=== PATIENT | male | born 1990 | race Caucasian/White ===

== ENCOUNTER 2016-08-19 19:10 | Inpatient (IN) | payer MEDICAID ==
[~2016-08-19] VITALS: Ht 165.1 cm; Wt 104.5 kg
[2016-08-19] MEDS ORDERED: SODIUM CHLORIDE 0.9% 1,000ML IVBOLUS ONE (19:30)
[2016-08-19] MEDS ORDERED: CLINDAMYCIN PMX 900MG/50ML 50 ML ONE (19:49)
[2016-08-19] MEDS ORDERED: CLINDAMYCIN PMX 900MG/50ML 50 ML IV ONE ×2 (19:50→20:00)
[2016-08-19] MEDS ORDERED: VANCOMYCIN PER PHARMACY MC PRN (20:00)
[2016-08-19] MEDS ORDERED: VANCOMYCIN 2,000 MG in SODIUM CHLORIDE 0.9% 500 ML IV ONE (20:00)
[2016-08-19] MEDS ORDERED: PIPERACILLIN/TAZO/PMX 3.375GM 50 ML IV ONE (20:00)
[2016-08-19 20:04] LABS: ASPARTATE AMINO TRANSFERASE 31 U/L (15-37); BLOOD UREA NITROGEN 15 mg/dL (7-18)
[2016-08-19] MEDS: HEPARIN 5,000 UNITS/ML, 1ML SQ SCH (21:00)
[2016-08-19] MEDS ORDERED: SODIUM CHLORIDE FLUSH 10ML SYR IVF PRN (21:00)
[2016-08-19] MEDS ORDERED: ACETAMINOPHEN 325 MG TABLET PO PRN (21:00)
[2016-08-19] MEDS ORDERED: POLYETHYLENE GLYCOL 17 GM PACKET PO PRN (21:00)
[2016-08-19] MEDS ORDERED: ONDANSETRON 2MG/ML, 2ML IVP PRN (21:00)
[2016-08-19] MEDS ORDERED: BISACODYL 10 MG SUPP PR PRN (21:00)
[2016-08-19 21:44] LABS: HIV 1&2 ANTIBODY SCREEN Nonreactive (Nonreactive); HIV-1 p24 ANTIGEN Nonreactive (Nonreactive)
[2016-08-19] MEDS: SODIUM CHLORIDE 0.9% 1,000 ML IV SCH (22:43)
[2016-08-19 23:05] VITALS: BP 103/67
[2016-08-19] MEDS: OXYcodone IR 5MG TABLET PO PRN (23:06)
[2016-08-20] MEDS: MEROPENEM 1 GM in SODIUM CHLORIDE 0.9% 100 ML IV SCH ×3 (00:41→17:44)
[2016-08-20] MEDS: LINEZOLID PMX 600MG/300ML 300 ML IV SCH ×2 (01:54→14:22)
[2016-08-20 02:00] VITALS: BP 109/69
[2016-08-20] MEDS: HEPARIN 5,000 UNITS/ML, 1ML SQ SCH ×3 (04:32→20:43)
[2016-08-20 06:04] LABS: ASPARTATE AMINO TRANSFERASE 44 U/L (15-37); BLOOD UREA NITROGEN 11 mg/dL (7-18)
[2016-08-20] MEDS ORDERED: GADOBUTROL 10 MMOL/10 ML PFS ONE (07:30)
[2016-08-20] MEDS: OXYcodone IR 5MG TABLET PO PRN ×2 (07:56→20:31)
[2016-08-20 08:55] VITALS: BP 126/78
[2016-08-20] MEDS: NICOTINE 7 MG/24 HR PATCH.TD24 TD SCH (09:00)
[2016-08-20] MEDS: SODIUM CHLORIDE 0.9% 1,000 ML IV SCH (09:00)
[2016-08-20] MEDS: SENNA/DOCUSATE TABLET PO SCH (09:28)
[2016-08-20 09:47] LABS: HEPATITIS C VIRUS ANTIBODY Nonreactive (Nonreactive)
[2016-08-20 15:00] VITALS: BP 117/82
[2016-08-20 19:52] VITALS: BP 93/57
[2016-08-21] MEDS: MEROPENEM 1 GM in SODIUM CHLORIDE 0.9% 100 ML IV SCH ×3 (00:26→18:40)
[2016-08-21] MEDS: OXYcodone IR 5MG TABLET PO PRN ×3 (00:26→23:46)
[2016-08-21] MEDS: LINEZOLID PMX 600MG/300ML 300 ML IV SCH ×2 (02:00→14:20)
[2016-08-21 03:04] VITALS: BP 97/61
[2016-08-21] MEDS: HEPARIN 5,000 UNITS/ML, 1ML SQ SCH ×3 (05:00→21:00)
[2016-08-21 06:34] LABS: BLOOD UREA NITROGEN 10 mg/dL (7-18)
[2016-08-21 07:03] VITALS: BP 97/59
[2016-08-21] MEDS: NICOTINE 7 MG/24 HR PATCH.TD24 TD SCH (08:45)
[2016-08-21] MEDS: SENNA/DOCUSATE TABLET PO SCH (08:45)
[2016-08-21 15:06] VITALS: BP 110/69
[2016-08-21] MEDS ORDERED: NEOSPORIN OINT, 15GM ONE (16:09)
[2016-08-21] MEDS ORDERED: ROCURONIUM 10 MG/ML ONE (16:14)
[2016-08-21] MEDS ORDERED: CEFAZOLIN 1,000 MG ONE (16:14)
[2016-08-21] MEDS ORDERED: ONDANSETRON 2MG/ML, 2ML ONE (16:14)
[2016-08-21] MEDS ORDERED: PROPOFOL 10 MG/ML, 20ML ONE (16:14)
[2016-08-21] MEDS ORDERED: SUCCINYLCHOLINE 20 MG/ML, 10ML ONE (16:14)
[2016-08-21] MEDS ORDERED: FENTANYL PF 250 MCG/5ML ONE (16:19)
[2016-08-21] MEDS ORDERED: MIDAZOLAM 1 MG/ML, 2ML ONE (16:19)
[2016-08-21] MEDS ORDERED: HYDROmorphone 1 MG/ML, 1ML IV PRN (17:00)
[2016-08-21] MEDS ORDERED: ONDANSETRON 2MG/ML, 2ML IVPush PRN (17:00)
[2016-08-21] MEDS ORDERED: OXYcodone 5 MG/5 ML ORAL.SOL UDC PO PRN (17:00)
[2016-08-21] MEDS ORDERED: LABETALOL 5MG/ML, 20ML IV PRN (17:00)
[2016-08-21] MEDS ORDERED: ACETAMINOPHEN 325 MG TABLET PO PRN (17:00)
[2016-08-21] MEDS ORDERED: FENTANYL PF 100 MCG/2ML IV PRN (17:00)
[2016-08-21] MEDS ORDERED: hydrALAzine 20 MG/ML, 1ML IV PRN (17:00)
[2016-08-21] MEDS ORDERED: METOCLOPRAMIDE 5 MG/ML, 2ML IV PRN (17:00)
[2016-08-21] MEDS ORDERED: BUPIVACAINE/PF-EPI 0.25% 1:200K ONE (17:12)
[2016-08-21] MEDS ORDERED: OXYcodone 5 MG/5 ML ORAL.SOL UDC ONE (17:53)
[2016-08-21] MEDS: MORPHINE SULFATE 4 MG/ML, 1ML IVPush PRN (18:56)
[2016-08-21 19:57] VITALS: BP 120/66
[2016-08-22] MEDS: MEROPENEM 1 GM in SODIUM CHLORIDE 0.9% 100 ML IV SCH ×3 (00:59→16:35)
[2016-08-22 01:55] VITALS: BP 109/57
[2016-08-22] MEDS: LINEZOLID PMX 600MG/300ML 300 ML IV SCH ×2 (01:56→13:10)
[2016-08-22] MEDS: HEPARIN 5,000 UNITS/ML, 1ML SQ SCH ×3 (04:48→20:33)
[2016-08-22 07:55] VITALS: BP 122/57
[2016-08-22] MEDS: OXYcodone IR 5MG TABLET PO PRN ×2 (08:55→16:38)
[2016-08-22] MEDS: SENNA/DOCUSATE TABLET PO SCH (08:56)
[2016-08-22] MEDS: NICOTINE 7 MG/24 HR PATCH.TD24 TD SCH (08:57)
[2016-08-22 13:57] VITALS: BP 111/58
[2016-08-22 19:55] VITALS: BP 116/78
[2016-08-23] MEDS: MEROPENEM 1 GM in SODIUM CHLORIDE 0.9% 100 ML IV SCH ×3 (00:57→17:28)
[2016-08-23 01:40] VITALS: BP 121/75
[2016-08-23] MEDS: LINEZOLID PMX 600MG/300ML 300 ML IV SCH ×2 (01:45→14:48)
[2016-08-23] MEDS: HEPARIN 5,000 UNITS/ML, 1ML SQ SCH ×3 (04:05→22:28)
[2016-08-23 08:30] VITALS: BP 116/73
[2016-08-23] MEDS: SENNA/DOCUSATE TABLET PO SCH (08:30)
[2016-08-23] MEDS: NICOTINE 7 MG/24 HR PATCH.TD24 TD SCH (08:30)
[2016-08-23] MEDS: OXYcodone IR 5MG TABLET PO PRN (08:55)
[2016-08-23] MEDS: MORPHINE SULFATE 4 MG/ML, 1ML IVPush PRN (10:21)
[2016-08-23 14:30] VITALS: BP 129/77
[2016-08-23 19:42] VITALS: BP 117/69
[2016-08-24] MEDS: MEROPENEM 1 GM in SODIUM CHLORIDE 0.9% 100 ML IV SCH ×2 (01:26→11:21)
[2016-08-24 01:38] VITALS: BP 122/76
[2016-08-24] MEDS: LINEZOLID PMX 600MG/300ML 300 ML IV SCH ×2 (02:35→14:03)
[2016-08-24] MEDS: HEPARIN 5,000 UNITS/ML, 1ML SQ SCH ×3 (06:30→23:05)
[2016-08-24] MEDS: SENNA/DOCUSATE TABLET PO SCH (07:47)
[2016-08-24] MEDS: NICOTINE 7 MG/24 HR PATCH.TD24 TD SCH (07:47)
[2016-08-24] MEDS: OXYcodone IR 5MG TABLET PO PRN (09:49)
[2016-08-24 09:54] VITALS: BP 129/80
[2016-08-24] MEDS ORDERED: CEFAZOLIN PMX 2GM/100ML 100 ML IV SCH (14:30)
[2016-08-24] MEDS ORDERED: CEFAZOLIN PMX 2GM/50ML 50 ML IV SCH (14:30)
[2016-08-24 15:09] VITALS: BP 140/93
[2016-08-24 20:36] VITALS: BP 135/85
[2016-08-24] MEDS: CEFAZOLIN PMX 2GM/50ML 50 ML IV SCH (23:05)
[2016-08-25 03:08] VITALS: BP 139/80
[2016-08-25] MEDS: CEFAZOLIN PMX 2GM/50ML 50 ML IV SCH ×3 (06:15→22:21)
[2016-08-25] MEDS: HEPARIN 5,000 UNITS/ML, 1ML SQ SCH ×3 (06:16→22:21)
[2016-08-25 07:36] VITALS: BP 120/74
[2016-08-25] MEDS: SENNA/DOCUSATE TABLET PO SCH (07:40)
[2016-08-25] MEDS: NICOTINE 7 MG/24 HR PATCH.TD24 TD SCH (07:40)
[2016-08-25] MEDS: OXYcodone IR 5MG TABLET PO PRN (07:44)
[2016-08-25 13:39] VITALS: BP 114/68
[2016-08-25 19:50] VITALS: BP 121/78
[2016-08-26 01:27] VITALS: BP 117/75
[2016-08-26] MEDS: HEPARIN 5,000 UNITS/ML, 1ML SQ SCH ×3 (06:30→22:30)
[2016-08-26] MEDS: CEFAZOLIN PMX 2GM/50ML 50 ML IV SCH ×3 (06:38→22:40)
[2016-08-26 07:48] VITALS: BP 127/64
[2016-08-26] MEDS: SENNA/DOCUSATE TABLET PO SCH (09:00)
[2016-08-26] MEDS: NICOTINE 7 MG/24 HR PATCH.TD24 TD SCH (09:00)
[2016-08-26] MEDS: MORPHINE SULFATE 4 MG/ML, 1ML IVPush PRN (12:07)
[2016-08-26 13:05] VITALS: BP 139/75
[2016-08-26] MEDS: OXYcodone IR 5MG TABLET PO PRN (13:57)
[2016-08-26 18:49] VITALS: BP 112/71
[2016-08-27 02:40] VITALS: BP 100/63
[2016-08-27 06:37] LABS: ASPARTATE AMINO TRANSFERASE 35 U/L (15-37); BLOOD UREA NITROGEN 13 mg/dL (7-18); C-REACTIVE PROTEIN, QUANT 0.42 mg/dL (0.02-0.49)
[2016-08-27 07:10] VITALS: BP 128/86
[2016-08-27] MEDS: SENNA/DOCUSATE TABLET PO SCH (08:05)
[2016-08-27] MEDS: HEPARIN 5,000 UNITS/ML, 1ML SQ SCH ×3 (08:05→22:30)
[2016-08-27] MEDS: CEFAZOLIN PMX 2GM/50ML 50 ML IV SCH ×3 (08:05→23:16)
[2016-08-27] MEDS: NICOTINE 7 MG/24 HR PATCH.TD24 TD SCH (08:06)
[2016-08-27] MEDS: OXYcodone IR 5MG TABLET PO PRN ×2 (08:07→12:40)
[2016-08-27] MEDS ORDERED: PROPOFOL 10 MG/ML, 20ML ONE (09:38)
[2016-08-27] MEDS ORDERED: GLYCOPYRROLATE 0.2MG/1ML ONE (09:38)
[2016-08-27] MEDS ORDERED: SUCCINYLCHOLINE 20 MG/ML, 10ML ONE (09:38)
[2016-08-27] MEDS ORDERED: NEOSTIGMINE 1 MG/ML, 10ML ONE (09:38)
[2016-08-27] MEDS ORDERED: ROCURONIUM 10 MG/ML ONE (09:38)
[2016-08-27] MEDS ORDERED: ONDANSETRON 2MG/ML, 2ML ONE (09:38)
[2016-08-27 13:00] VITALS: BP 116/73
[2016-08-27 18:38] VITALS: BP 141/88
[2016-08-28 02:28] VITALS: BP 98/54
[2016-08-28] MEDS: CEFAZOLIN PMX 2GM/50ML 50 ML IV SCH ×3 (06:15→22:55)
[2016-08-28] MEDS: HEPARIN 5,000 UNITS/ML, 1ML SQ SCH ×3 (06:15→22:30)
[2016-08-28] MEDS: SENNA/DOCUSATE TABLET PO SCH (09:00)
[2016-08-28] MEDS: NICOTINE 7 MG/24 HR PATCH.TD24 TD SCH (09:00)
[2016-08-28 09:02] VITALS: BP 113/55
[2016-08-28] MEDS ORDERED: FENTANYL PF 250 MCG/5ML ONE (09:41)
[2016-08-28] MEDS ORDERED: MIDAZOLAM 1 MG/ML, 2ML ONE (09:42)
[2016-08-28] MEDS ORDERED: LABETALOL 5MG/ML, 20ML IV PRN (10:00)
[2016-08-28] MEDS ORDERED: METOCLOPRAMIDE 5 MG/ML, 2ML IV PRN (10:00)
[2016-08-28] MEDS ORDERED: ONDANSETRON 2MG/ML, 2ML IVPush PRN (10:00)
[2016-08-28] MEDS ORDERED: ACETAMINOPHEN 325 MG TABLET PO PRN (10:00)
[2016-08-28] MEDS ORDERED: hydrALAzine 20 MG/ML, 1ML IV PRN (10:00)
[2016-08-28] MEDS ORDERED: HYDROmorphone 1 MG/ML, 1ML IV PRN (10:00)
[2016-08-28] MEDS ORDERED: OXYcodone 5 MG/5 ML ORAL.SOL UDC PO PRN (10:00)
[2016-08-28] MEDS: FENTANYL PF 100 MCG/2ML IV PRN ×2 (10:45→11:12)
[2016-08-28] MEDS ORDERED: FENTANYL PF 100 MCG/2ML ONE (10:50)
[2016-08-28] MEDS ORDERED: ACETAMINOPHEN 325 MG TABLET ONE (10:51)
[2016-08-28] MEDS ORDERED: OXYcodone 5 MG/5 ML ORAL.SOL UDC ONE (10:51)
[2016-08-28] MEDS ORDERED: HYDROmorphone 2 MG/ML, 1ML ONE (11:19)
[2016-08-28 13:59] VITALS: BP 152/72
[2016-08-28] MEDS: OXYcodone IR 5MG TABLET PO PRN (14:22)
[2016-08-28 19:34] VITALS: BP 112/51
[2016-08-29 03:00] VITALS: BP 95/47
[2016-08-29] MEDS: CEFAZOLIN PMX 2GM/50ML 50 ML IV SCH ×3 (06:21→23:14)
[2016-08-29] MEDS: HEPARIN 5,000 UNITS/ML, 1ML SQ SCH ×3 (06:24→22:30)
[2016-08-29 07:27] VITALS: BP 120/65
[2016-08-29] MEDS: SENNA/DOCUSATE TABLET PO SCH (09:00)
[2016-08-29] MEDS: OXYcodone IR 5MG TABLET PO PRN ×2 (09:21→20:02)
[2016-08-29] MEDS: NICOTINE 7 MG/24 HR PATCH.TD24 TD SCH (09:22)
[2016-08-29] MEDS: ERTAPENEM 1 GM in SODIUM CHLORIDE 0.9% 50 ML IV SCH (15:03)
[2016-08-29 15:11] VITALS: BP 122/75
[2016-08-29 19:56] VITALS: BP 147/77
[2016-08-30] MEDS: CEFAZOLIN PMX 2GM/50ML 50 ML IV SCH ×2 (06:24→14:30)
[2016-08-30] MEDS: HEPARIN 5,000 UNITS/ML, 1ML SQ SCH ×3 (06:24→22:06)
[2016-08-30 07:27] VITALS: BP 123/66
[2016-08-30] MEDS: NICOTINE 7 MG/24 HR PATCH.TD24 TD SCH (09:00)
[2016-08-30] MEDS: SENNA/DOCUSATE TABLET PO SCH (09:00)
[2016-08-30 13:44] VITALS: BP 126/71
[2016-08-30] MEDS: ERTAPENEM 1 GM in SODIUM CHLORIDE 0.9% 50 ML IV SCH (14:30)
[2016-08-30 19:01] VITALS: BP 135/72
[2016-08-30] MEDS: OXYcodone IR 5MG TABLET PO PRN (19:40)
[2016-08-31] MEDS: OXYcodone IR 5MG TABLET PO PRN ×2 (00:09→19:07)
[2016-08-31 01:30] VITALS: BP 130/72
[2016-08-31] MEDS: HEPARIN 5,000 UNITS/ML, 1ML SQ SCH ×2 (06:30→15:41)
[2016-08-31 08:35] VITALS: BP 127/68
[2016-08-31] MEDS: SENNA/DOCUSATE TABLET PO SCH (09:00)
[2016-08-31] MEDS: NICOTINE 7 MG/24 HR PATCH.TD24 TD SCH (09:00)
[2016-08-31] MEDS: ERTAPENEM 1 GM in SODIUM CHLORIDE 0.9% 50 ML IV SCH (15:40)
[2016-08-31] MEDS: MORPHINE SULFATE 4 MG/ML, 1ML IVPush PRN ×2 (15:46→20:06)
[2016-08-31 16:10] VITALS: BP 144/78
[2016-08-31 20:01] VITALS: BP 138/69
[2016-09-01 02:04] VITALS: BP 125/84
[2016-09-01] MEDS: HEPARIN 5,000 UNITS/ML, 1ML SQ SCH ×4 (08:00→23:55)
[2016-09-01] MEDS: SENNA/DOCUSATE TABLET PO SCH (08:46)
[2016-09-01] MEDS: NICOTINE 7 MG/24 HR PATCH.TD24 TD SCH (08:46)
[2016-09-01 09:03] VITALS: BP 122/70
[2016-09-01] MEDS: MORPHINE SULFATE 4 MG/ML, 1ML IVPush PRN ×3 (09:54→23:49)
[2016-09-01] MEDS: OXYcodone IR 5MG TABLET PO PRN (13:06)
[2016-09-01 14:16] VITALS: BP 153/82
[2016-09-01] MEDS: ERTAPENEM 1 GM in SODIUM CHLORIDE 0.9% 50 ML IV SCH (14:58)
[2016-09-01 19:21] VITALS: BP 135/75
[2016-09-02 01:45] VITALS: BP 130/78
[2016-09-02] MEDS ORDERED: DIPHENHYDRAMINE 25 MG CAPSULE PO ONE (03:00)
[2016-09-02 06:08] LABS: ASPARTATE AMINO TRANSFERASE 112 U/L (15-37); BLOOD UREA NITROGEN 15 mg/dL (7-18); C-REACTIVE PROTEIN, QUANT 0.37 mg/dL (0.02-0.49)
[2016-09-02 08:00] VITALS: BP 123/70
[2016-09-02] MEDS: HEPARIN 5,000 UNITS/ML, 1ML SQ SCH ×3 (08:00→16:46)
[2016-09-02] MEDS: NICOTINE 7 MG/24 HR PATCH.TD24 TD SCH (08:18)
[2016-09-02] MEDS: SENNA/DOCUSATE TABLET PO SCH (08:18)
[2016-09-02] MEDS: OXYcodone IR 5MG TABLET PO PRN ×2 (08:19→16:45)
[2016-09-02 13:53] VITALS: BP 132/74
[2016-09-02] MEDS: ERTAPENEM 1 GM in SODIUM CHLORIDE 0.9% 50 ML IV SCH (14:32)
[2016-09-02] MEDS: MORPHINE SULFATE 4 MG/ML, 1ML IVPush PRN ×2 (14:33→19:51)
[2016-09-02 20:00] VITALS: BP 131/62
[2016-09-03] MEDS: DIPHENHYDRAMINE 25 MG CAPSULE PO PRN (00:03)
[2016-09-03] MEDS: MORPHINE SULFATE 4 MG/ML, 1ML IVPush PRN ×3 (00:03→22:38)
[2016-09-03 01:22] VITALS: BP 129/62
[2016-09-03 07:43] VITALS: BP 100/55
[2016-09-03] MEDS: HEPARIN 5,000 UNITS/ML, 1ML SQ SCH ×3 (08:00→16:00)
[2016-09-03] MEDS: SENNA/DOCUSATE TABLET PO SCH (09:00)
[2016-09-03] MEDS: NICOTINE 7 MG/24 HR PATCH.TD24 TD SCH ×2 (09:00→15:56)
[2016-09-03 14:21] VITALS: BP 143/78
[2016-09-03] MEDS: ERTAPENEM 1 GM in SODIUM CHLORIDE 0.9% 50 ML IV SCH (14:28)
[2016-09-03] MEDS: OXYcodone IR 5MG TABLET PO PRN ×2 (15:55→19:58)
[2016-09-03 19:51] VITALS: BP 107/81
[2016-09-04 03:05] VITALS: BP 135/69
[2016-09-04] MEDS: SENNA/DOCUSATE TABLET PO SCH (09:00)
[2016-09-04] MEDS: HEPARIN 5,000 UNITS/ML, 1ML SQ SCH ×2 (09:00)
[2016-09-04] MEDS: NICOTINE 7 MG/24 HR PATCH.TD24 TD SCH (13:07)
[2016-09-04] MEDS: MORPHINE SULFATE 4 MG/ML, 1ML IVPush PRN ×3 (13:07→20:38)
[2016-09-04] MEDS: ENOXAPARIN 40 MG/0.4 ML SQ SCH (13:30)
[2016-09-04 13:34] VITALS: BP 117/74
[2016-09-04] MEDS: ERTAPENEM 1 GM in SODIUM CHLORIDE 0.9% 50 ML IV SCH (14:00)
[2016-09-04 20:42] VITALS: BP 139/77
[2016-09-05] MEDS: MORPHINE SULFATE 4 MG/ML, 1ML IVPush PRN ×6 (00:13→22:31)
[2016-09-05 01:56] VITALS: BP 137/80
[2016-09-05] MEDS: DIPHENHYDRAMINE 25 MG CAPSULE PO PRN (02:36)
[2016-09-05] MEDS: OXYcodone IR 5MG TABLET PO PRN ×2 (02:36→20:27)
[2016-09-05] MEDS: SENNA/DOCUSATE TABLET PO SCH (08:58)
[2016-09-05 09:04] VITALS: BP 131/87
[2016-09-05] MEDS: ENOXAPARIN 40 MG/0.4 ML SQ SCH (13:38)
[2016-09-05] MEDS: NICOTINE 7 MG/24 HR PATCH.TD24 TD SCH (13:38)
[2016-09-05] MEDS: ERTAPENEM 1 GM in SODIUM CHLORIDE 0.9% 50 ML IV SCH (14:31)
[2016-09-05 16:40] VITALS: BP 98/62
[2016-09-05 18:42] VITALS: BP 159/82
[2016-09-05] MEDS: PRAZOSIN 1 MG CAPSULE PO SCH ×2 (20:27→20:30)
[2016-09-06] MEDS: SENNA/DOCUSATE TABLET PO SCH (07:53)
[2016-09-06 08:30] VITALS: BP 149/84
[2016-09-06] MEDS: MORPHINE SULFATE 4 MG/ML, 1ML IVPush PRN ×4 (08:46→21:10)
[2016-09-06] MEDS: OXYcodone IR 5MG TABLET PO PRN ×2 (12:03→19:46)
[2016-09-06 13:05] VITALS: BP 152/84
[2016-09-06] MEDS: ENOXAPARIN 40 MG/0.4 ML SQ SCH (13:30)
[2016-09-06] MEDS: NICOTINE 7 MG/24 HR PATCH.TD24 TD SCH (14:21)
[2016-09-06] MEDS: ERTAPENEM 1 GM in SODIUM CHLORIDE 0.9% 50 ML IV SCH (14:21)
[2016-09-06 18:40] VITALS: BP 152/68
[2016-09-06] MEDS: PRAZOSIN 1 MG CAPSULE PO SCH (21:00)
[2016-09-07] MEDS: OXYcodone IR 5MG TABLET PO PRN ×3 (00:38→20:23)
[2016-09-07] MEDS: MORPHINE SULFATE 4 MG/ML, 1ML IVPush PRN ×5 (01:27→21:51)
[2016-09-07 03:21] VITALS: BP 132/75
[2016-09-07] MEDS: SENNA/DOCUSATE TABLET PO SCH (09:00)
[2016-09-07 09:55] VITALS: BP 135/70
[2016-09-07] MEDS: ENOXAPARIN 40 MG/0.4 ML SQ SCH (13:30)
[2016-09-07] MEDS: NICOTINE 7 MG/24 HR PATCH.TD24 TD SCH (13:44)
[2016-09-07] MEDS: ERTAPENEM 1 GM in SODIUM CHLORIDE 0.9% 50 ML IV SCH ×2 (13:44→15:04)
[2016-09-07 14:00] VITALS: BP 129/72
[2016-09-07 18:29] VITALS: BP 132/79
[2016-09-07] MEDS: PRAZOSIN 1 MG CAPSULE PO SCH (20:24)
[2016-09-08 08:05] VITALS: BP_SYST 145; BP_SYST 170; BP_DIAS 108; BP_DIAS 80
[2016-09-08] MEDS: SENNA/DOCUSATE TABLET PO SCH (09:00)
[2016-09-08] MEDS: MORPHINE SULFATE 4 MG/ML, 1ML IVPush PRN ×4 (10:23→22:28)
[2016-09-08] MEDS: ENOXAPARIN 40 MG/0.4 ML SQ SCH (13:21)
[2016-09-08] MEDS: NICOTINE 7 MG/24 HR PATCH.TD24 TD SCH (14:18)
[2016-09-08] MEDS: ERTAPENEM 1 GM in SODIUM CHLORIDE 0.9% 50 ML IV SCH (14:18)
[2016-09-08] MEDS: OXYcodone IR 5MG TABLET PO PRN (19:36)
[2016-09-08 19:42] VITALS: BP 132/72
[2016-09-08] MEDS: PRAZOSIN 1 MG CAPSULE PO SCH (21:00)
[2016-09-09 01:09] VITALS: BP 134/77
[2016-09-09] MEDS: MORPHINE SULFATE 4 MG/ML, 1ML IVPush PRN ×5 (03:12→20:55)
[2016-09-09 06:26] LABS: BLOOD UREA NITROGEN 16 mg/dL (7-18); C-REACTIVE PROTEIN, QUANT 0.12 mg/dL (0.02-0.49)
[2016-09-09 06:31] LABS: ASPARTATE AMINO TRANSFERASE 82 U/L (15-37)
[2016-09-09 07:59] VITALS: BP 143/83
[2016-09-09] MEDS: SENNA/DOCUSATE TABLET PO SCH (09:06)
[2016-09-09] MEDS: OXYcodone IR 5MG TABLET PO PRN ×2 (10:22→20:03)
[2016-09-09] MEDS: NICOTINE 7 MG/24 HR PATCH.TD24 TD SCH (13:41)
[2016-09-09] MEDS: ERTAPENEM 1 GM in SODIUM CHLORIDE 0.9% 50 ML IV SCH (13:42)
[2016-09-09] MEDS: ENOXAPARIN 40 MG/0.4 ML SQ SCH (13:42)
[2016-09-09 13:57] VITALS: BP 131/72
[2016-09-09 19:34] VITALS: BP 126/84
[2016-09-10 01:23] VITALS: BP 137/76
[2016-09-10] MEDS: MORPHINE SULFATE 4 MG/ML, 1ML IVPush PRN ×5 (01:26→22:21)
[2016-09-10] MEDS: DIPHENHYDRAMINE 25 MG CAPSULE PO PRN (02:42)
[2016-09-10] MEDS: OXYcodone IR 5MG TABLET PO PRN ×2 (02:42→21:09)
[2016-09-10 07:06] VITALS: BP 148/70
[2016-09-10] MEDS: SENNA/DOCUSATE TABLET PO SCH (09:00)
[2016-09-10] MEDS: ENOXAPARIN 40 MG/0.4 ML SQ SCH (13:30)
[2016-09-10] MEDS: ERTAPENEM 1 GM in SODIUM CHLORIDE 0.9% 50 ML IV SCH (13:37)
[2016-09-10] MEDS: NICOTINE 7 MG/24 HR PATCH.TD24 TD SCH (13:38)
[2016-09-10 13:58] VITALS: BP 135/72
[2016-09-10 19:39] VITALS: BP 125/83
[2016-09-11] MEDS: DIPHENHYDRAMINE 25 MG CAPSULE PO PRN ×2 (00:06→22:55)
[2016-09-11 00:08] VITALS: BP 133/85
[2016-09-11 08:46] VITALS: BP 133/74
[2016-09-11] MEDS: SENNA/DOCUSATE TABLET PO SCH (08:51)
[2016-09-11] MEDS: MORPHINE SULFATE 4 MG/ML, 1ML IVPush PRN ×4 (08:52→22:55)
[2016-09-11] MEDS: OXYcodone IR 5MG TABLET PO PRN ×2 (10:53→20:45)
[2016-09-11] MEDS: ENOXAPARIN 40 MG/0.4 ML SQ SCH (13:29)
[2016-09-11] MEDS: NICOTINE 7 MG/24 HR PATCH.TD24 TD SCH (13:37)
[2016-09-11] MEDS: ERTAPENEM 1 GM in SODIUM CHLORIDE 0.9% 50 ML IV SCH (14:41)
[2016-09-11 15:50] VITALS: BP 130/80
[2016-09-12 06:59] VITALS: BP 117/74
[2016-09-12] MEDS: SENNA/DOCUSATE TABLET PO SCH (09:00)
[2016-09-12] MEDS: MORPHINE SULFATE 4 MG/ML, 1ML IVPush PRN ×4 (09:16→22:20)
[2016-09-12 09:39] VITALS: BP 129/70
[2016-09-12] MEDS: ENOXAPARIN 40 MG/0.4 ML SQ SCH (13:30)
[2016-09-12] MEDS: ERTAPENEM 1 GM in SODIUM CHLORIDE 0.9% 50 ML IV SCH (15:09)
[2016-09-12] MEDS: NICOTINE 7 MG/24 HR PATCH.TD24 TD SCH (15:10)
[2016-09-12] MEDS: OXYcodone IR 5MG TABLET PO PRN ×2 (15:10→20:59)
[2016-09-12 15:50] VITALS: BP 135/78
[2016-09-12 20:57] VITALS: BP 159/63
[2016-09-12] MEDS: DIPHENHYDRAMINE 25 MG CAPSULE PO PRN (22:24)
[2016-09-13 02:00] VITALS: BP 126/80
[2016-09-13 07:16] VITALS: BP 109/68
[2016-09-13] MEDS: SENNA/DOCUSATE TABLET PO SCH (07:54)
[2016-09-13] MEDS: ENOXAPARIN 40 MG/0.4 ML SQ SCH (13:30)
[2016-09-13] MEDS: ERTAPENEM 1 GM in SODIUM CHLORIDE 0.9% 50 ML IV SCH (14:16)
[2016-09-13] MEDS: NICOTINE 7 MG/24 HR PATCH.TD24 TD SCH (14:16)
[2016-09-13] MEDS: MORPHINE SULFATE 4 MG/ML, 1ML IVPush PRN ×3 (14:16→22:38)
[2016-09-13] MEDS: OXYcodone IR 5MG TABLET PO PRN ×2 (16:07→21:16)
[2016-09-13 21:30] VITALS: BP 132/77
[2016-09-13] MEDS: DIPHENHYDRAMINE 25 MG CAPSULE PO PRN (22:43)
[2016-09-14 03:10] VITALS: BP 128/79
[2016-09-14] MEDS: MORPHINE SULFATE 4 MG/ML, 1ML IVPush PRN ×2 (03:25→07:46)
[2016-09-14 07:50] VITALS: BP 136/86
[2016-09-14] MEDS: SENNA/DOCUSATE TABLET PO SCH (07:51)
[2016-09-14] MEDS: ENOXAPARIN 40 MG/0.4 ML SQ SCH (07:51)
[2016-09-14] MEDS: OXYcodone IR 5MG TABLET PO PRN ×3 (10:03→22:59)
[2016-09-14 12:55] VITALS: BP 134/84
[2016-09-14] MEDS: NICOTINE 7 MG/24 HR PATCH.TD24 TD SCH (14:53)
[2016-09-14] MEDS: ERTAPENEM 1 GM in SODIUM CHLORIDE 0.9% 50 ML IV SCH (14:56)
[2016-09-14 23:19] VITALS: BP 131/80
[2016-09-15] MEDS: SENNA/DOCUSATE TABLET PO SCH (09:00)
[2016-09-15] MEDS: OXYcodone IR 5MG TABLET PO PRN (09:07)
[2016-09-15 09:08] VITALS: BP 133/79
[2016-09-15] MEDS: ENOXAPARIN 40 MG/0.4 ML SQ SCH (13:30)
[2016-09-15] MEDS: NICOTINE 7 MG/24 HR PATCH.TD24 TD SCH (15:08)
[2016-09-15] MEDS: ERTAPENEM 1 GM in SODIUM CHLORIDE 0.9% 50 ML IV SCH (15:08)
[2016-09-15 16:17] VITALS: BP 132/73
[2016-09-15 20:14] VITALS: BP 136/74
[2016-09-16] MEDS: SENNA/DOCUSATE TABLET PO SCH (09:00)
[2016-09-16] MEDS ORDERED: OXYcodone IR 5MG TABLET PO PRN ×3 (11:30→19:00)
[2016-09-16] MEDS: ENOXAPARIN 40 MG/0.4 ML SQ SCH (13:30)
[2016-09-16 14:10] VITALS: BP 121/68
[2016-09-16] MEDS: NICOTINE 7 MG/24 HR PATCH.TD24 TD SCH (16:55)
[2016-09-16] MEDS: ERTAPENEM 1 GM in SODIUM CHLORIDE 0.9% 50 ML IV SCH ×2 (16:57→17:27)
[2016-09-16 20:12] VITALS: BP 127/73
[2016-09-17 07:53] VITALS: BP 126/72
[2016-09-17] MEDS: SENNA/DOCUSATE TABLET PO SCH (09:00)
[2016-09-17] MEDS ORDERED: OXYcodone IR 5MG TABLET PO PRN ×2 (10:00→11:00)
[2016-09-17] MEDS ORDERED: HYDR-3240 PO (11:57)
[2016-09-17] MEDS: ENOXAPARIN 40 MG/0.4 ML SQ SCH (13:30)
[2016-09-17 13:54] VITALS: BP 136/83
[2016-09-17] MEDS: NICOTINE 7 MG/24 HR PATCH.TD24 TD SCH (17:00)
[2016-09-17] MEDS: ERTAPENEM 1 GM in SODIUM CHLORIDE 0.9% 50 ML IV SCH (17:11)
[2016-09-17] MEDS: HYDROcodone/APAP 5/325 TABLET PO PRN (17:38)
[2016-09-17 20:24] VITALS: BP 133/76
[2016-09-18 07:30] VITALS: BP 121/76
[2016-09-18] MEDS: HYDROcodone/APAP 5/325 TABLET PO PRN (07:56)
[2016-09-18] MEDS: SENNA/DOCUSATE TABLET PO SCH (09:00)
[2016-09-18] MEDS: ENOXAPARIN 40 MG/0.4 ML SQ SCH (13:30)
[2016-09-18] MEDS: ERTAPENEM 1 GM in SODIUM CHLORIDE 0.9% 50 ML IV SCH (13:54)
[2016-09-18 14:34] VITALS: BP 135/90
== END 2016-09-18 15:58 | disposition home or self-care (01) | DRG 854 ==
LOC: ED 20:34 → EDIP 20:35 → ED 20:39 → 3NE 22:00
PROVIDERS: ADMIT Internal Medicine; ATTEND Family Medicine
PROC: 0Y6M0ZF Detachment at Right Foot, Partial 5th Ray, Open Approach (ICD-10-PCS; principal; 2016-08-21 16:00)
PROC: 0JDQ0ZZ Extraction of Right Foot Subcutaneous Tissue and Fascia, Open Approach (ICD-10-PCS; 2016-08-28)
PROC: 02HV33Z Insertion of Infusion Device into Superior Vena Cava, Percutaneous Approach (ICD-10-PCS; 2016-08-29)
PROC: B5181ZA Fluoroscopy of Superior Vena Cava using Low Osmolar Contrast, Guidance (ICD-10-PCS; 2016-08-29)
PROC: B548ZZA Ultrasonography of Superior Vena Cava, Guidance (ICD-10-PCS; 2016-08-29)
DX: A41.9 Sepsis, unspecified organism (principal); M00.9 Pyogenic arthritis, unspecified; E87.1 Hypo-osmolality and hyponatremia; L03.115 Cellulitis of right lower limb; M86.171 Other acute osteomyelitis, right ankle and foot; L02.611 Cutaneous abscess of right foot; F15.20 Other stimulant dependence, uncomplicated; L97.519 Non-pressure chronic ulcer of other part of right foot with unspecified severity; E11.69 Type 2 diabetes mellitus with other specified complication; E11.621 Type 2 diabetes mellitus with foot ulcer; E11.65 Type 2 diabetes mellitus with hyperglycemia; L84 Corns and callosities; F17.210 Nicotine dependence, cigarettes, uncomplicated; F11.10 Opioid abuse, uncomplicated; F12.90 Cannabis use, unspecified, uncomplicated; F43.10 Post-traumatic stress disorder, unspecified; F32.9 Major depressive disorder, single episode, unspecified; Z71.6 Tobacco abuse counseling; Z89.512 Acquired absence of left leg below knee; Z91.19 Patient's noncompliance with other medical treatment and regimen
CPT/HCPCS: 36415; 36569; 76937; 77001; 80048; 80053; 80074; 82565; 83605; 84145; 85025; 85651; 86140; 86703; 87040; 87070; 87075; 87077; 87147; 87176; 87181; 87186; 87205; 87899; 88305; 96365; 96367; A9585; J0690; J1170; J1335; J1644; J1650; J2020; J2185; J2250; J2405; J2704; J2710; J3010; J3370; J3490; C1751; G0435; J0330; J7030; J7040; Q0163

== ENCOUNTER 2017-02-19 00:08 | Emergency (ER) | payer MEDICAID ==
[~2017-02-19] VITALS: Ht 165.1 cm; Wt 87.1 kg
[~2017-02-19 00:08] MED LIST: HYDR-3240 PO
[2017-02-19] MEDS ORDERED: CLINDAMYCIN PMX 600MG/50ML 0 ML ONE (00:50)
[2017-02-19] MEDS ORDERED: SODIUM CHLORIDE FLUSH 10ML SYR IVF ONE (01:00)
[2017-02-19] MEDS ORDERED: CLINDAMYCIN PMX 300MG/50ML 50 ML IV ONE (01:00)
[2017-02-19 01:07] LABS: HEMATOCRIT 39.1 % (39.2-51.8); HEMOGLOBIN 13.3 g/dL (13.7-18.0); WHITE BLOOD COUNT 15.3 x10^3/uL (3.4-10)
[2017-02-19 01:21] LABS: BLOOD UREA NITROGEN 14 mg/dL (7-18)
[2017-02-19] MEDS ORDERED: LIDOCAINE 1%, 10ML INFIL ONE (02:30)
[2017-02-19] MEDS ORDERED: LIDOCAINE 1%, 20ML ONE (02:34)
[2017-02-19 03:56] VITALS: BP 112/68
== END 2017-02-19 04:10 | disposition home or self-care (01) ==
LOC: ED 00:47
DX: L02.413 Cutaneous abscess of right upper limb (principal); E11.9 Type 2 diabetes mellitus without complications
CPT/HCPCS: 10060; 36415; 76882; 80048; 82040; 85025; 96365; 96366; 99285; J3490

== ENCOUNTER 2017-02-19 21:19 | Emergency (ER) | payer MEDICAID ==
[2017-02-19 21:21] VITALS: BP 132/78
== END 2017-02-19 21:49 | disposition home or self-care (01) ==
LOC: ED 21:40
DX: L03.113 Cellulitis of right upper limb (principal); E11.9 Type 2 diabetes mellitus without complications; Z89.512 Acquired absence of left leg below knee
CPT/HCPCS: 99282

== ENCOUNTER 2017-02-23 03:26 | Emergency (ER) | payer MEDICAID ==
[~2017-02-23] VITALS: Ht 165.1 cm; Wt 88.5 kg
[2017-02-23 03:29] VITALS: BP 136/87
[2017-02-23] MEDS ORDERED: BACITRACIN ZINC OINT 500U/GM, 0.9 GM ONE (03:43)
== END 2017-02-23 04:01 | disposition home or self-care (01) ==
LOC: ED 03:30
DX: Z48.01 Encounter for change or removal of surgical wound dressing (principal); E11.9 Type 2 diabetes mellitus without complications
CPT/HCPCS: 99282

== ENCOUNTER 2017-05-03 06:59 | Inpatient (IN) | payer MEDICAID ==
[~2017-05-03] VITALS: Ht 165.1 cm; Wt 88.0 kg
[2017-05-03] MEDS ORDERED: ALBUTEROL/IPRATROPIUM 2.5MG/0.5MG, 3 ML ONE (07:48)
[2017-05-03] MEDS ORDERED: SODIUM CHLORIDE 0.9% 1,000ML IVBOLUS ONE (08:00)
[2017-05-03] MEDS ORDERED: SODIUM CHLORIDE FLUSH 10ML SYR IVF ONE (08:00)
[2017-05-03] MEDS ORDERED: VANCOMYCIN 1,500 MG in SODIUM CHLORIDE 0.9% 250 ML IV ONE (08:00)
[2017-05-03] MEDS ORDERED: VANCOMYCIN PER PHARMACY IV ONE (08:00)
[2017-05-03] MEDS: ALBUTEROL/IPRATROPIUM 2.5MG/0.5MG, 3 ML NPPB SCH (08:07)
[2017-05-03] MEDS ORDERED: PIPERACILLIN/TAZO/PMX 3.375GM 50 ML ONE (08:21)
[2017-05-03] MEDS ORDERED: PIPERACILLIN/TAZO/PMX 3.375GM 50 ML IVPB ONE (08:30)
[2017-05-03 09:00] LABS: HEMATOCRIT 39.4 % (39.2-51.8); HEMOGLOBIN 13.5 g/dL (13.7-18.0); WHITE BLOOD COUNT 17.3 x10^3/uL (3.4-10)
[2017-05-03 09:11] LABS: BLOOD UREA NITROGEN 26 mg/dL (7-18)
[2017-05-03 09:22] LABS: DIFF TOTAL CELLS COUNTED 100 CELL DIFF
[2017-05-03 09:24] LABS: VERIFY COUNTS? YES
[2017-05-03] MEDS ORDERED: SODIUM CHLORIDE FLUSH 10ML SYR IVF PRN (11:00)
[2017-05-03] MEDS ORDERED: PHARMACY MAY ADJ FOR RENAL FX MC PRN (11:30)
[2017-05-03] MEDS ORDERED: DOCUSATE 100 MG CAPSULE PO PRN (11:30)
[2017-05-03] MEDS ORDERED: ONDANSETRON 2MG/ML, 2ML IVPush PRN (11:30)
[2017-05-03] MEDS ORDERED: HYDROmorphone 2 MG/ML, 1ML IVPush PRN (11:30)
[2017-05-03] MEDS: PIPERACILLIN/TAZO/PMX 3.375GM 50 ML IV SCH ×3 (11:30→23:30)
[2017-05-03] MEDS ORDERED: LABETALOL 5MG/ML, 20ML IVPush PRN (11:30)
[2017-05-03] MEDS ORDERED: POLYETHYLENE GLYCOL 17 GM PACKET PO PRN (11:30)
[2017-05-03] MEDS ORDERED: BISACODYL 10 MG SUPP PR PRN (11:30)
[2017-05-03] MEDS ORDERED: ENALAPRILAT 1.25 MG/ML, 2ML IVPush PRN (11:30)
[2017-05-03] MEDS ORDERED: ACETAMINOPHEN 325 MG TABLET PO PRN (11:30)
[2017-05-03] MEDS ORDERED: VANCOMYCIN PER PHARMACY MC PRN (11:30)
[2017-05-03] MEDS: HEPARIN 5,000 UNITS/ML, 1ML SQ SCH ×3 (15:29→21:11)
[2017-05-03] MEDS: HYDROcodone/APAP 5/325 TABLET PO PRN ×2 (15:30→21:12)
[2017-05-03] MEDS: SODIUM CHLORIDE 0.9% 1,000 ML IV SCH ×2 (15:30→19:09)
[2017-05-03] MEDS ORDERED: PHARMACOKINETIC MONITORING MC PRN (16:00)
[2017-05-03] MEDS ORDERED: PHARMACOKINETIC CONSULTATION MC ONE (16:00)
[2017-05-03] MEDS ORDERED: VANCOMYCIN 1,600 MG in SODIUM CHLORIDE 0.9% 250 ML IV SCH (16:00)
[2017-05-03] MEDS: NICOTINE 21 MG/24 HR PATCH.TD24 TD SCH (17:31)
[2017-05-03 17:46] VITALS: BP 100/54
[2017-05-03 18:53] LABS: POTASSIUM,URINE RANDOM 50 mmol/L
[2017-05-03 20:00] VITALS: BP 101/49
[2017-05-04] MEDS: HEPARIN 5,000 UNITS/ML, 1ML SQ SCH ×3 (02:20→19:30)
[2017-05-04] MEDS: SODIUM CHLORIDE 0.9% 1,000 ML IV SCH ×3 (02:20→22:23)
[2017-05-04 02:21] VITALS: BP 127/66
[2017-05-04 04:13] LABS: HEMATOCRIT 34.6 % (39.2-51.8); HEMOGLOBIN 11.8 g/dL (13.7-18.0); WHITE BLOOD COUNT 8.9 x10^3/uL (3.4-10)
[2017-05-04 04:24] LABS: BLOOD UREA NITROGEN 19 mg/dL (7-18)
[2017-05-04] MEDS: HYDROcodone/APAP 5/325 TABLET PO PRN ×2 (06:18→22:21)
[2017-05-04] MEDS: PIPERACILLIN/TAZO/PMX 3.375GM 50 ML IV SCH ×3 (06:19→18:12)
[2017-05-04 07:50] VITALS: BP 98/55
[2017-05-04] MEDS: NICOTINE 21 MG/24 HR PATCH.TD24 TD SCH (11:35)
[2017-05-04 15:30] VITALS: BP 106/49
[2017-05-04] MEDS: VANCOMYCIN 1,600 MG in SODIUM CHLORIDE 0.9% 250 ML IV SCH (16:20)
[2017-05-04 21:04] VITALS: BP 120/76
[2017-05-05] MEDS: PIPERACILLIN/TAZO/PMX 3.375GM 50 ML IV SCH ×4 (00:28→20:02)
[2017-05-05 03:04] LABS: HEMATOCRIT 31.4 % (39.2-51.8); HEMOGLOBIN 10.8 g/dL (13.7-18.0); WHITE BLOOD COUNT 6.3 x10^3/uL (3.4-10)
[2017-05-05 03:12] LABS: BLOOD UREA NITROGEN 7 mg/dL (7-18)
[2017-05-05 03:20] VITALS: BP 121/57
[2017-05-05] MEDS: HEPARIN 5,000 UNITS/ML, 1ML SQ SCH ×3 (03:30→19:30)
[2017-05-05] MEDS: VANCOMYCIN 1,600 MG in SODIUM CHLORIDE 0.9% 250 ML IV SCH ×2 (04:35→16:08)
[2017-05-05 08:08] VITALS: BP 118/63
[2017-05-05] MEDS: SODIUM CHLORIDE 0.9% 1,000 ML IV SCH ×3 (11:00→21:00)
[2017-05-05] MEDS: NICOTINE 21 MG/24 HR PATCH.TD24 TD SCH (11:30)
[2017-05-05] MEDS ORDERED: POTASSIUM CHLORIDE 20 MEQ TAB.ER.PRT PO ONE (15:00)
[2017-05-05 16:11] VITALS: BP 123/65
[2017-05-05 20:20] VITALS: BP 131/72
[2017-05-06 03:02] VITALS: BP 131/87
[2017-05-06] MEDS: HEPARIN 5,000 UNITS/ML, 1ML SQ SCH ×3 (03:30→19:30)
[2017-05-06] MEDS: PIPERACILLIN/TAZO/PMX 3.375GM 50 ML IV SCH ×2 (03:30→08:59)
[2017-05-06] MEDS: VANCOMYCIN 1,600 MG in SODIUM CHLORIDE 0.9% 250 ML IV SCH (04:31)
[2017-05-06] MEDS: SODIUM CHLORIDE 0.9% 1,000 ML IV SCH ×3 (05:00→19:54)
[2017-05-06 06:17] LABS: BLOOD UREA NITROGEN 7 mg/dL (7-18)
[2017-05-06 06:39] LABS: HEMATOCRIT 34.8 % (39.2-51.8); HEMOGLOBIN 11.7 g/dL (13.7-18.0); WHITE BLOOD COUNT 5.7 x10^3/uL (3.4-10)
[2017-05-06 07:31] VITALS: BP 119/64
[2017-05-06] MEDS: NICOTINE 21 MG/24 HR PATCH.TD24 TD SCH (11:30)
[2017-05-06 11:58] VITALS: BP 126/69
[2017-05-06] MEDS: VANCOMYCIN 1,700 MG in SODIUM CHLORIDE 0.9% 250 ML IV SCH (13:30)
[2017-05-06] MEDS: DOXYCYCLINE 100MG TABLET PO SCH ×2 (13:37→19:54)
[2017-05-06 18:44] VITALS: BP 134/75
[2017-05-07] MEDS: VANCOMYCIN 1,700 MG in SODIUM CHLORIDE 0.9% 250 ML IV SCH (01:22)
[2017-05-07] MEDS: HEPARIN 5,000 UNITS/ML, 1ML SQ SCH ×2 (03:30→12:25)
[2017-05-07] MEDS: SODIUM CHLORIDE 0.9% 1,000 ML IV SCH (05:00)
[2017-05-07] MEDS ORDERED: [UNRECOGNIZED DRUG - CODE] PO (08:22)
[2017-05-07] MEDS ORDERED: LINEZOLID 20MG/ML ORAL SUSP PO SCH (08:30)
[2017-05-07] MEDS ORDERED: LINEZOLID 600 MG TABLET PO SCH ×2 (08:30→09:30)
[2017-05-07 09:20] VITALS: BP 110/60
[2017-05-07] MEDS: DOXYCYCLINE 100MG TABLET PO SCH (10:47)
[2017-05-07] MEDS: NICOTINE 21 MG/24 HR PATCH.TD24 TD SCH (11:30)
== END 2017-05-07 18:30 | disposition home or self-care (01) | DRG 682 ==
LOC: ED 07:35 → EDIP 10:45 → 4NOR 15:14
PROVIDERS: ADMIT Internal Medicine; ATTEND Internal Medicine
DX: N17.9 Acute kidney failure, unspecified (principal); E43 Unspecified severe protein-calorie malnutrition; L03.315 Cellulitis of perineum; B95.62 Methicillin resistant Staphylococcus aureus infection as the cause of diseases classified elsewhere; E11.9 Type 2 diabetes mellitus without complications; F17.210 Nicotine dependence, cigarettes, uncomplicated; L03.317 Cellulitis of buttock; N49.2 Inflammatory disorders of scrotum; F19.90 Other psychoactive substance use, unspecified, uncomplicated; F43.10 Post-traumatic stress disorder, unspecified; Z53.20 Procedure and treatment not carried out because of patient's decision for unspecified reasons; Z86.14 Personal history of Methicillin resistant Staphylococcus aureus infection; Z89.512 Acquired absence of left leg below knee; Z89.421 Acquired absence of other right toe(s); Z91.19 Patient's noncompliance with other medical treatment and regimen; Z68.32 Body mass index [BMI] 32.0-32.9, adult
CPT/HCPCS: 36415; 71020; 76857; 80048; 80202; 81001; 82040; 82436; 82550; 82570; 83605; 84133; 84300; 85025; 85651; 86141; 87040; 87070; 87077; 87086; 87147; 87186; 87205; 96365; 96366; J1644; J2543; J3370; J7620; J7030; J7050

== ENCOUNTER 2017-05-09 20:19 | Emergency (ER) | payer MEDICAID ==
[~2017-05-09] VITALS: Ht 165.1 cm; Wt 81.0 kg
[~2017-05-09 20:19] MED LIST changes: +[UNRECOGNIZED DRUG - CODE] PO
[2017-05-09 21:13] LABS: BASOPHILS # (AUTO) 0.05 x10^3/uL (0-0.1); BASOPHILS % (AUTO) 0 % (0-1); EOSINOPHILS # (AUTO) 0.15 x10^3/uL (0-0.4); EOSINOPHILS % (AUTO) 1 % (1-7); LYMPHOCYTES # (AUTO) 2.67 x10^3/uL (1-3.4); LYMPHOCYTES % (AUTO) 24 % (22-44); MD NO; MEAN CORPUSCULAR HEMOGLOBIN 28.6 pg (27.5-34.5); MEAN CORPUSCULAR HGB CONC 33.1 g/dL (33.2-36.2); MEAN CORPUSCULAR VOLUME 86.4 fL (81-97); MEAN PLATELET VOLUME 7.5 fL (7.4-10.4); MONOCYTES % (AUTO) 6 % (2-9); NEUTROPHILS # (AUTO) 7.73 x10^3/uL (1.8-6.8); NEUTROPHILS % (AUTO) 68 % (42-75); PLATELET COUNT 507 x10^3/uL (130-400); RED BLOOD COUNT 5.05 x10^6/uL (4.38-5.82); RED CELL DISTRIBUTION WIDTH 12.9 % (9.4-14.8)
[2017-05-09 21:21] LABS: ALBUMIN 3.3 g/dL (3.4-5.0); ANION GAP 5 mmol/L (5-15); CALCIUM 9.1 mg/dL (8.5-10.1); CHLORIDE 108 mmol/L (98-107); CREATININE 0.73 mg/dL (0.7-1.3)
[2017-05-09] MEDS ORDERED: OXYcodone/APAP 5/325MG TABLET ONE (21:46)
[2017-05-09] MEDS ORDERED: OXYcodone/APAP 5/325MG TABLET PO ONE (22:00)
[2017-05-09] MEDS ORDERED: PROPOFOL 10 MG/ML, 20ML IVPush ONE (23:00)
[2017-05-09] MEDS ORDERED: PROPOFOL 0 ML IV ONE (23:21)
[2017-05-09] MEDS ORDERED: PROPOFOL 10 MG/ML, 20ML ONE (23:23)
[2017-05-10] MEDS ORDERED: HYDROcodone/APAP 5/325 TABLET ONE (00:55)
[2017-05-10] MEDS ORDERED: HYDROcodone/APAP 5/325 TABLET PO ONE (01:00)
[2017-05-10 02:17] VITALS: BP 122/71
== END 2017-05-10 02:20 | disposition home or self-care (01) ==
LOC: ED 20:54
DX: L02.31 Cutaneous abscess of buttock (principal); E11.9 Type 2 diabetes mellitus without complications
CPT/HCPCS: 10060; 36415; 76857; 80048; 82040; 85025; 99285; J2704

== ENCOUNTER 2020-05-08 02:08 | Inpatient (IN) | payer MEDICAID ==
[~2020-05-08] VITALS: Ht 165.1 cm; Wt 88.4 kg
[2020-05-08] MEDS ORDERED: LIDOCAINE-MPF 1%, 5ML ONE (02:46)
[2020-05-08] MEDS ORDERED: CEPHALEXIN 500 MG CAPSULE PO ONE (03:30)
[2020-05-08] MEDS ORDERED: SULFAMETH./TRIMETHOPRIM DS 800MG/160MG TABLET PO ONE (03:30)
[2020-05-08] MEDS ORDERED: OXYcodone/APAP 10/325MG TABLET PO ONE (03:30)
[2020-05-08] MEDS ORDERED: SULFAMETH./TRIMETHOPRIM DS 800MG/160MG TABLET ONE (03:40)
[2020-05-08] MEDS ORDERED: CEPHALEXIN 500 MG CAPSULE ONE (03:40)
[2020-05-08] MEDS ORDERED: OXYcodone/APAP 10/325MG TABLET ONE (03:40)
[2020-05-08] MEDS ORDERED: SODIUM CHLORIDE 0.9% 1,000ML IVBOLUS ONE (04:00)
--- NOTE | 2020-05-08 04:25 | NUR ---
provider wanted to not give po antibiotics and switch to iv
[2020-05-08 04:41] LABS: BASOPHILS % (AUTO) 0 % (0-1); EOSINOPHILS % (AUTO) 0 % (1-7); LYMPHOCYTES % (AUTO) 11 % (22-44); MD NO; MEAN CORPUSCULAR HEMOGLOBIN 28.9 pg (27.5-34.5); MEAN PLATELET VOLUME 7.8 fL (7.4-10.4); MONOCYTES % (AUTO) 8 % (2-9); NEUTROPHILS % (AUTO) 82 % (42-75); PLATELET COUNT 329 x10^3/uL (130-400); RED BLOOD COUNT 4.31 x10^6/uL (4.38-5.82); RED CELL DISTRIBUTION WIDTH 12.3 % (9.4-14.8)
[2020-05-08 04:51] LABS: ALBUMIN 3.4 g/dL (3.4-5.0); ANION GAP 6 mmol/L (5-15); CALCIUM 8.8 mg/dL (8.5-10.1); CHLORIDE 102 mmol/L (98-107); CREATININE 1.19 mg/dL (0.7-1.3)
[2020-05-08] MEDS ORDERED: LABETALOL 5MG/ML, 20ML IVPush PRN (05:00)
[2020-05-08] MEDS ORDERED: VANCOMYCIN PER PHARMACY MC PRN (05:00)
[2020-05-08] MEDS ORDERED: PIPERACILLIN/TAZO/PMX 3.375GM 50 ML IVPB ONE (05:00)
[2020-05-08] MEDS ORDERED: VANCOMYCIN PER PHARMACY MC ONE (05:00)
[2020-05-08] MEDS ORDERED: SODIUM CHLORIDE 0.9% 1,000 ML IV SCH (05:00)
[2020-05-08] MEDS ORDERED: DOCUSATE 100 MG CAPSULE PO PRN (05:00)
[2020-05-08] MEDS ORDERED: SODIUM CHLORIDE 0.9% 1,000 ML IV ONE (05:00)
[2020-05-08] MEDS ORDERED: VANCOMYCIN 2,200 MG in SODIUM CHLORIDE 0.9% 500 ML IV ONE (05:00)
[2020-05-08] MEDS ORDERED: morphine SULFATE 10 MG/ML, 1ML IVPush PRN (05:00)
[2020-05-08] MEDS: HEPARIN 5,000 UNITS/ML, 1ML SQ SCH ×3 (05:00→20:13)
--- NOTE | 2020-05-08 05:19 | NUR ---
PT RESTING IN BED, PT ON MONITOR WITH VSS. PT MEDICATED PER JUL. PT CONTINUED TO TAKE OF B/P CUFF AND WALK AROUND THE ROOM. PT ASKED TO STAY IN BED.
[2020-05-08] MEDS ORDERED: PIPERACILLIN/TAZO/PMX 3.375GM 50 ML ONE ×3 (05:36→20:07)
[2020-05-08] MEDS ORDERED: HEPARIN 5,000 UNITS/ML, 1ML ONE ×3 (05:36→20:07)
[2020-05-08] MEDS ORDERED: PHARMACOKINETIC MONITORING MC PRN (06:00)
--- NOTE | 2020-05-08 06:52 | NUR ---
REPORT TO bradley
--- NOTE | 2020-05-08 07:40 | NUR ---
PT IN BED, VSS, NO COMPLAINTS OF PAIN, IVAB RUNNING,
--- NOTE | 2020-05-08 10:00 | NUR ---
pt in bed no distress.
--- NOTE | 2020-05-08 12:00 | NUR ---
PT IN BED NO DISTRESS
[2020-05-08] MEDS: PIPERACILLIN/TAZO/PMX 3.375GM 50 ML IV SCH ×2 (13:30→20:14)
--- NOTE | 2020-05-08 14:00 | NUR ---
PT IN BED NO DISTRESS
[2020-05-08] MEDS ORDERED: HYDROcodone/APAP 5/325 TABLET ONE (17:35)
[2020-05-08] MEDS: VANCOMYCIN 1,700 MG in SODIUM CHLORIDE 0.9% 250 ML IV SCH (17:58)
[2020-05-08] MEDS: HYDROcodone/APAP 5/325 TABLET PO PRN (17:58)
--- NOTE | 2020-05-08 19:16 | NUR ---
jonas huerta assumed care of pt at this time
--- NOTE | 2020-05-08 20:00 | NUR ---
PT IN NAD AT THIS TIME
--- NOTE | 2020-05-08 20:55 | NUR ---
REPORT TO GINGER MORENO TO FLOOR WITH TECH
[2020-05-08 21:12] VITALS: BP 103/63
[2020-05-09 00:56] VITALS: BP 106/64
[2020-05-09] MEDS: PIPERACILLIN/TAZO/PMX 3.375GM 50 ML IV SCH ×4 (02:04→19:33)
[2020-05-09] MEDS: HEPARIN 5,000 UNITS/ML, 1ML SQ SCH ×3 (05:00→21:00)
[2020-05-09] MEDS: VANCOMYCIN 1,700 MG in SODIUM CHLORIDE 0.9% 250 ML IV SCH ×2 (05:12→16:25)
[2020-05-09 06:00] LABS: BASOPHILS % (AUTO) 0 % (0-1); EOSINOPHILS % (AUTO) 1 % (1-7); LYMPHOCYTES % (AUTO) 10 % (22-44); MEAN CORPUSCULAR HEMOGLOBIN 29.2 pg (27.5-34.5); MEAN CORPUSCULAR HGB CONC 34.2 g/dL (33.2-36.2); MEAN PLATELET VOLUME 7.8 fL (7.4-10.4); MONOCYTES % (AUTO) 9 % (2-9); NEUTROPHILS % (AUTO) 80 % (42-75); PLATELET COUNT 299 x10^3/uL (130-400); RED BLOOD COUNT 4.03 x10^6/uL (4.38-5.82); RED CELL DISTRIBUTION WIDTH 12.5 % (9.4-14.8)
[2020-05-09 06:01] LABS: MD NO
[2020-05-09 06:12] LABS: CALCIUM 8.7 mg/dL (8.5-10.1); CREATININE 0.75 mg/dL (0.7-1.3)
[2020-05-09 06:38] LABS: ANION GAP 5 mmol/L (5-15); CHLORIDE 108 mmol/L (98-107)
[2020-05-09 07:23] VITALS: BP 118/76
[2020-05-09] MEDS: HYDROcodone/APAP 5/325 TABLET PO PRN ×2 (09:15→23:58)
[2020-05-09 14:18] VITALS: BP 113/68
[2020-05-09 20:00] VITALS: BP 136/73
[2020-05-10 01:00] VITALS: BP 110/66
[2020-05-10] MEDS: PIPERACILLIN/TAZO/PMX 3.375GM 50 ML IV SCH ×4 (01:20→19:49)
[2020-05-10] MEDS: HEPARIN 5,000 UNITS/ML, 1ML SQ SCH ×3 (01:24→19:49)
[2020-05-10] MEDS: VANCOMYCIN 1,700 MG in SODIUM CHLORIDE 0.9% 250 ML IV SCH ×2 (04:55→16:59)
[2020-05-10 07:35] VITALS: BP 114/67
[2020-05-10] MEDS ORDERED: OMNIPAQUE 350 MG/ML, 100ML BOTTLE ONE (14:48)
[2020-05-10 15:45] VITALS: BP 137/88
[2020-05-10 19:51] VITALS: BP 108/63
[2020-05-11] MEDS: PIPERACILLIN/TAZO/PMX 3.375GM 50 ML IV SCH ×4 (01:50→19:41)
[2020-05-11] MEDS: HYDROcodone/APAP 5/325 TABLET PO PRN ×3 (01:54→22:55)
[2020-05-11] MEDS: HEPARIN 5,000 UNITS/ML, 1ML SQ SCH ×3 (04:00→19:32)
[2020-05-11] MEDS: VANCOMYCIN 1,700 MG in SODIUM CHLORIDE 0.9% 250 ML IV SCH (05:12)
[2020-05-11 08:05] VITALS: BP 114/72
[2020-05-11 13:35] VITALS: BP 129/77
[2020-05-11 21:40] VITALS: BP 119/68
[2020-05-12 01:01] VITALS: BP 117/83
[2020-05-12] MEDS: PIPERACILLIN/TAZO/PMX 3.375GM 50 ML IV SCH ×4 (01:31→19:28)
[2020-05-12] MEDS: HEPARIN 5,000 UNITS/ML, 1ML SQ SCH ×4 (03:05→19:18)
[2020-05-12 07:17] VITALS: BP 137/69
[2020-05-12] MEDS: HYDROcodone/APAP 5/325 TABLET PO PRN ×2 (10:32→18:10)
[2020-05-12 12:31] VITALS: BP 135/81
[2020-05-12 18:55] VITALS: BP 124/77
[2020-05-13] MEDS: PIPERACILLIN/TAZO/PMX 3.375GM 50 ML IV SCH ×4 (01:52→22:41)
[2020-05-13 05:16] LABS: BASOPHILS % (AUTO) 1 % (0-1); EOSINOPHILS % (AUTO) 1 % (1-7); LYMPHOCYTES % (AUTO) 25 % (22-44); MEAN CORPUSCULAR HEMOGLOBIN 29.4 pg (27.5-34.5); MEAN CORPUSCULAR HGB CONC 34.7 g/dL (33.2-36.2); MEAN PLATELET VOLUME 7.6 fL (7.4-10.4); MONOCYTES % (AUTO) 9 % (2-9); NEUTROPHILS % (AUTO) 64 % (42-75); PLATELET COUNT 452 x10^3/uL (130-400); RED BLOOD COUNT 4.57 x10^6/uL (4.38-5.82); RED CELL DISTRIBUTION WIDTH 12.6 % (9.4-14.8)
[2020-05-13 05:17] LABS: MD NO
[2020-05-13 07:03] VITALS: BP 128/77
[2020-05-13] MEDS: HEPARIN 5,000 UNITS/ML, 1ML SQ SCH ×2 (12:24→21:52)
[2020-05-13 15:44] VITALS: BP 137/88
[2020-05-13] MEDS: HYDROcodone/APAP 5/325 TABLET PO PRN ×2 (18:53→22:43)
[2020-05-13 19:04] VITALS: BP 109/70
[2020-05-14 03:26] VITALS: BP 133/81
== END 2020-05-14 04:20 | disposition left against medical advice (07) | DRG 710 ==
LOC: ED 03:38 → EDIP 04:40 → 3N 21:10
PROVIDERS: ADMIT Family Medicine; ATTEND Family Medicine
PROC: 0W960ZZ Drainage of Neck, Open Approach (ICD-10-PCS; principal; 2020-05-08)
DX: A41.9 Sepsis, unspecified organism (principal); D64.9 Anemia, unspecified; E11.9 Type 2 diabetes mellitus without complications; F32.9 Major depressive disorder, single episode, unspecified; F43.10 Post-traumatic stress disorder, unspecified; L02.11 Cutaneous abscess of neck; L03.221 Cellulitis of neck; F19.10 Other psychoactive substance abuse, uncomplicated; Z86.14 Personal history of Methicillin resistant Staphylococcus aureus infection; Z89.512 Acquired absence of left leg below knee
CPT/HCPCS: 36415; 70491; 80048; 80202; 82040; 83605; 84145; 85025; 87040; 87070; 87077; 87205; 96374; 96375; 99291; G0378; J1644; J2543; J3370; Q9967; J7030; J7040; J7050